=== PATIENT | female | born 1985 | race Caucasian/White ===

== ENCOUNTER 2020-11-12 09:54 | Outpatient (CLI) | payer OTHER, SELFPAY ==
[2020-11-12 10:08] LABS: Appearance Urine UA CLEAR; Bilirubin Urine UA NEGATIVE (NEGATIVE); Color Urine UA YELLOW; Glucose Urine UA NEGATIVE (Negative); Ketones Urine UA NEGATIVE (NEGATIVE); Leukocyte Esterase Urine UA 3+ (NEGATIVE); Nitrite Urine UA NEGATIVE (Negative); Occult Blood Urine UA NEGATIVE (Negative); Protein Urine UA NEGATIVE (Negative); Specific Gravity Urine UA <=1.005 (1.000-1.035); Urobilinogen Urine UA 0.2 E.U./dL (0.2)
[2020-11-12 10:09] LABS: pH Urine UA 6.5 (4.5-8.0)
[2020-11-12 10:10] LABS: RBC Urine None Seen (0-5/HPF)
[2020-11-12 10:15] LABS: Bacteria Urine Moderate (10-30); Culture Indicated Urine Cult Not Indicated; Squamous Epithelial Cell Urine 5-10 /HPF (0-5/HPF); WBC Urine 5-10/HPF (0-5/HPF)
--- NOTE | 2020-11-12 10:35 | PM.OBTRLD ---
Visit Information Visit Information Date of evaluation: 11/12/20 Primary OB Provider: Millicent Ewing On-call OB Provider: penny Reason for Evaluation: Yes pre-term labor Comments/Additional reasons for admission: Patient came in saying she felt lower abdominal cramping and low back pain. The cramping has come and gone. Currently feels better. Vital Signs Vital Signs: Blood pressure 118/75, pulse 75 PFSH Medical History (Updated 11/12/20 @ 10:37 by Helena Serrano MD) Neuralgic migraines (~2004) Painful menstrual periods (~2001) depression (~2015) Rh negative status during (~09/2020) Shingles Subclinical hypothyroidism (~04/12/13) Family History (Updated 10/09/20 @ 16:15 by Emilia Katz RN) Mother Hypertension Father History of kidney cancer History of nephrectomy Grandmother Diabetes mellitus Grandfather No problems noted. Grandmother Family history not known due to adoption Grandfather Family history not known due to adoption Social History marital status: number of children: 2 household members: spouse and children lives independently: Yes caregiver/support person: No housing: house pets and animals: No education level: master's degree ([employer]) occupational status: unemployed (SAHM.) current occupational exposures/hazards: No special sherron needs: No seatbelt use: always Smoking Status: Never smoker second hand exposure: No alcohol intake: former (Very rarely, once a year . ) substance use type: does not use during the past year weight has: remained stable well-balanced diet: daily or most days daily servings fruits/ve-4 caffeine: Yes (1 cup once or twice a week. ) Type(s) of exercise: bicycling (Spin bike ) frequency: 3-4 times per week Objective Labs Labs: Laboratory Results - last 24 hr 11/12/20 09:55 Urine Color Yellow Urine Appearance Clear Urine pH 6.5 Ur Specific [place] <=1.005 Urine Protein Negative Urine Glucose (UA) Negative Urine Ketones Negative Urine Occult Blood Negative Urine Nitrate Negative Urine Bilirubin Negative Urine Urobilinogen 0.2 Ur Leukocyte Esterase 3+ H Urine RBC None seen Urine WBC 5-10/hpf H Ur Squamous Epith Cells 5-10 /hpf H Urine Bacteria Moderate (10-30) H Ur Culture Indicated? Cult not indicated Evaluation Evaluation Baseline heart rate: 145 Contraction Frequency (minutes): 0 Category of Tracing: Appropriate for gestational age Laboratory results: Laboratory Tests 11/12/20 09:55 Urine Color Yellow Urine Appearance Clear Urine pH 6.5 Ur Specific [place] <=1.005 Urine Protein Negative Urine Glucose (UA) Negative Urine Ketones Negative Urine Occult Blood Negative Urine Nitrate Negative Urine Bilirubin Negative Urine Urobilinogen 0.2 Ur Leukocyte Esterase 3+ H Urine RBC None seen Urine WBC 5-10/hpf H Ur Squamous Epith Cells 5-10 /hpf H Urine Bacteria Moderate (10-30) H Ur Culture Indicated? Cult not indicated Diagnosis, Plan/Disposition Final Diagnosis (1) UTI (urinary tract infection) in in second trimester: Status: Acute Plan/Disposition Plan: Patient probably has a UTI will treat OB Disposition: home
== END 2020-11-12 10:45 | disposition home or self-care (01) ==
LOC: LABOR 10:10 → OB 11-13 07:52
PROVIDERS: PCP Physician Assistant; Referring Provider Obstetrics & Gynecology; Visit Provider Obstetrics & Gynecology
DX: O23.42 Unspecified infection of urinary tract in pregnancy, second trimester (principal); Z3A.24 24 weeks gestation of pregnancy
CPT/HCPCS: 59025; 59050; 81003; 81015; 87086; G0378; G0379

== ENCOUNTER → 2020-12-04 08:17 | Outpatient (CLI) | payer OTHER, SELFPAY ==
[2020-12-04 10:18] LABS: Hemoglobin 12.9 g/dL (12.0-16.0)
[2020-12-04 10:33] LABS: GTT (PREG) 1 Hour PP 50gm Dose 103 mg/dL (76-139)
== END ==
PROVIDERS: PCP Physician Assistant; Referring Provider Obstetrics & Gynecology; Visit Provider Obstetrics & Gynecology
DX: Z34.82 Encounter for supervision of other normal pregnancy, second trimester (principal)
CPT/HCPCS: 36415; 82950; 85014; 85018

== ENCOUNTER → 2021-01-29 08:17 | Outpatient (CLI) | payer OTHER, SELFPAY ==
[2021-01-29 09:52] LABS: Free T4, Direct Thyroxine 0.89 ng/dL (0.78-2.19)
[2021-01-29 10:06] LABS: Thyroid Stimulating Hormone 1.88 uIU/mL (0.47-4.68)
== END ==
PROVIDERS: PCP Physician Assistant; Referring Provider Obstetrics & Gynecology; Visit Provider Obstetrics & Gynecology
DX: E03.9 Hypothyroidism, unspecified (principal)
CPT/HCPCS: 36415; 84439; 84443

== ENCOUNTER → 2021-01-30 13:48 | Outpatient (CLI) | payer OTHER, SELFPAY ==
[2021-01-31 21:18] LABS: Strep Grp B PCR NEG for Grp B Strep
== END ==
PROVIDERS: PCP Physician Assistant; Visit Provider Obstetrics & Gynecology
DX: Z34.03 Encounter for supervision of normal first pregnancy, third trimester (principal); Z3A.36 36 weeks gestation of pregnancy
CPT/HCPCS: 87653

== ENCOUNTER 2021-02-25 08:33 | Inpatient (IN) | payer OTHER, SELFPAY ==
[2021-02-25 12:25] LABS: COVID19 - ADMIT (NP swab/PCR) Negative (Negative)
[2021-02-25 13:16] LABS: Add Manual Diff / Slide Review NO; Basophils Absolute Auto 0 /uL (0-100); Basophils Percent Auto 0.3 % (0-2); Eosinophils Absolute Auto 100 /uL (0-450); Eosinophils Percent Auto 0.5 % (2-4); Hematocrit 36.3 % (36-46); Hemoglobin 11.8 g/dL (12.0-16.0); Lymphocytes Absolute Auto 2100 /uL (1100-4500); Lymphocytes Percent Auto 20.4 % (25-40); Mean Corpuscular HGB Conc 32.6 % (30-36); Mean Corpuscular Hemoglobin 27.5 PG (26-34); Mean Corpuscular Volume 84.4 fL (80-100); Monocytes Absolute Auto 800 /uL (0-900); Monocytes Percent Auto 8.1 % (3-14); Neutrophils Absolute Auto 7200 /uL (1500-7000); Neutrophils Percent Auto 70.7 % (50-75); Platelet Count 349 X10^3/uL (150-400); Red Cell Distribution Width 14.6 % (11.6-14.8); White Blood Cell Count 10.2 X10^3/uL (4.5-11.0)
--- NOTE | 2021-02-25 14:15 | P.HPOB_ITS ---
OB HPI Date/Time Date of admission: 02/25/21 Date Patient Seen: 02/25/21 Time Patient Seen: 14:16 History of Present Condition Chief complaint: Labor & Delivery : 4 Para: 2 Estimated Date of Delivery: 02/26/21 Estimated Gestational Age (weeks): 39 Narrative: Savannah Johnson is a 35 year old female arrived on Labor and delivery in active labor History of Present care: good care, initiated at week # (9), number of visits (11) and pounds weight gain (35) Dating criteria: LMP confirmed by 1st trimester US Ultrasounds: normal mid trimester US Obstetrical complications: none Medical complications: none Preadmission Labs Blood type: A (-) negative -: Antibody screen: negative, GBS status: negative, HBsAG: negative, HIV: negative and RPR/VDLR: negative -: Chlamydia screen: not detected and Gonorrhea screen: not detected -: Rubella: immune HCAB: negative Cell-free DNA: Normal female 1 hr GTT: 103 Prior (ies) History: 04/29/2016 41 week gestation vaginal delivery female infant weighing 8 lb 3 oz 01/28/2019 40 week gestation vaginal delivery at home, not intentional, female infant weighing 7 lb 11 oz Evaluation Evaluation Baseline heart rate: 120 Variability: Moderate (11-25) monitor accelerations: Present Monitor Decelerations: Absent Contraction Frequency (minutes): 4 Uterine Contraction Intensity: Strong/Firm Category of Tracing: Reactive Status: Category l Cervical dilation (cm): 4 Cervical effacement (%): 90 station: -2 Laboratory results: Laboratory Tests 02/25/21 02/25/21 02/25/21 10:35 11:32 12:00 WBC 10.2 RBC 4.30 Hgb 11.8 L Hct 36.3 MCV 84.4 MCH 27.5 MCHC 32.6 RDW 14.6 Plt Count 349 Neut % (Auto) 70.7 Lymph % (Auto) 20.4 L [place] % (Auto) 8.1 Eos % (Auto) 0.5 L Baso % (Auto) 0.3 Neut # (Auto) 7200 H Lymph # (Auto) 2100 [place] # (Auto) 800 Eos # (Auto) 100 Baso # (Auto) 0 SARS-CoV-2 (PCR) Negative Blood Type A Negative Antibody Screen Negative PFSH Medical History (Updated 02/25/21 @ 15:05 by Helena Serrano MD) Neuralgic migraines (~2004) Painful menstrual periods (~2001) depression (~2015) Rh negative status during (~09/2020) Shingles Subclinical hypothyroidism (~04/12/13) Family History (Updated 10/09/20 @ 16:15 by Emilia Katz RN) Mother Hypertension Father History of kidney cancer History of nephrectomy Grandmother Diabetes mellitus Grandfather No problems noted. Grandmother Family history not known due to adoption Grandfather Family history not known due to adoption Social History marital status: number of children: 2 household members: spouse and children lives independently: Yes caregiver/support person: No housing: house pets and animals: No education level: master's degree ([employer]) occupational status: unemployed (SAHM.) current occupational exposures/hazards: No special sherron needs: No seatbelt use: always Smoking Status: Never smoker second hand exposure: No alcohol intake: former (Very rarely, once a year . ) substance use type: does not use during the past year weight has: remained stable well-balanced diet: daily or most days daily servings fruits/ve-4 caffeine: Yes (1 cup once or twice a week. ) Type(s) of exercise: bicycling (Spin bike ) frequency: 3-4 times per week Meds Home Medications and Allergies Allergies Allergy/AdvReac Type Severity Reaction Status Date / Time amoxicillin AdvReac Mild Hives as a Verified 10/09/20 15:36 Penicillins AdvReac Mild Hives as a Verified 10/09/20 15:36 Review of Systems Review of Systems Narrative: Patient denies any leakage of fluid. Good movement. No headaches, scotomata, epigastric pain. Patient with increasing contractions. History of home due to fast labor. Exam Vital Signs (past 8 hours): Blood pressure 133/83, pulse 70, temperature 36.6? Narrative Exam Narrative: HEENT exam within normal limits. Lungs are clear to auscultation percussion. Heart is regular rate and rhythm no S3-S4 murmurs. Abdomen is gravid. Fetus is vertex. Extremities without edema and nontender. Objective Labs Result Diagrams: 02/25/21 12:00 Labs: Laboratory Results - last 24 hr 02/25/21 02/25/21 02/25/21 10:35 11:32 12:00 WBC 10.2 RBC 4.30 Hgb 11.8 L Hct 36.3 MCV 84.4 MCH 27.5 MCHC 32.6 RDW 14.6 Plt Count 349 Neut % (Auto) 70.7 Lymph % (Auto) 20.4 L [place] % (Auto) 8.1 Eos % (Auto) 0.5 L Baso % (Auto) 0.3 Neut # (Auto) 7200 H Lymph # (Auto) 2100 [place] # (Auto) 800 Eos # (Auto) 100 Baso # (Auto) 0 SARS-CoV-2 (PCR) Negative Blood Type A Negative Antibody Screen Negative Assessment and Plan Assessment and Plan Assessment and Plan narrative: 39 week gestation in active labor. Anticipate vaginal delivery.
--- NOTE | 2021-02-25 18:15 | P.PCNOB_ITS ---
Labor & Delivery Delivery date: 02/25/21 Intrapartal Events: None Delivery monitor: external FHT and external uterine Route of delivery: L&D Laceration Description: Perineal - 1st Degree Delivery repair: chromic (3 0) Estimated blood loss (mL): 100 Anesthesia Type: Local (For repair 1% lidocaine approximately 10 cc) Narrative: Patient arrived on Labor and delivery in early labor. She ambulated and had change of her cervix. She progressed normally and had spontaneous rupture membranes for clear fluid. Patient's 1st stage of labor was 3 hours and 52 minutes. 2nd stage labor 13 minutes. She delivered spontaneously, over an intact perineum and the viable female infant was placed on the maternal abdomen. After the cord stopped pulsating the cord was clamped, cut, and cord bloods obtained. 3rd stage of labor was 15 minutes. Placenta delivered spontaneously, intact, with 3 vessels. The patient had no cervical or vaginal tears. A first- degree perineal tear was repaired with 3 0 chromic suture. Estimated blood loss 100 cc. Both mother doing well. Baby 1: Infant gender: Female Presentation: vertex Position: Right Occiput Anterior Placenta delivery description: Spontaneous Cord Vessel Description: 3 Vessels score (1 min): 9 score (5 min): 9 weight: 8 lb 9 oz Plan for aftercare: Routine care
[2021-02-26 07:00] LABS: Add Manual Diff / Slide Review NO; Basophils Absolute Auto 0 /uL (0-100); Basophils Percent Auto 0.5 % (0-2); Eosinophils Absolute Auto 100 /uL (0-450); Eosinophils Percent Auto 0.6 % (2-4); Hematocrit 34.3 % (36-46); Hemoglobin 11.4 g/dL (12.0-16.0); Lymphocytes Absolute Auto 1700 /uL (1100-4500); Lymphocytes Percent Auto 16.3 % (25-40); Mean Corpuscular HGB Conc 33.2 % (30-36); Mean Corpuscular Hemoglobin 27.5 PG (26-34); Mean Corpuscular Volume 82.9 fL (80-100); Monocytes Absolute Auto 900 /uL (0-900); Monocytes Percent Auto 8.2 % (3-14); Neutrophils Absolute Auto 7900 /uL (1500-7000); Neutrophils Percent Auto 74.4 % (50-75); Platelet Count 316 X10^3/uL (150-400); Red Blood Cell Count 4.14 X10^6/uL (4.0-5.2); Red Cell Distribution Width 14.5 % (11.6-14.8); White Blood Cell Count 10.7 X10^3/uL (4.5-11.0)
--- NOTE | 2021-02-26 08:45 | PM.OBDS.1 ---
Discharge Providers Provider Date of admission: 02/25/21 08:33 Discharge Date: 02/26/21 Primary care physician: Rashad Beckett PA-C Consults: 02/26/21 15:05 Consult to Maintenance Superintendent Routine Comment: Discharge provider: Millicent Ewing MD Summary Hospital Course Date Patient Seen: 02/26/21 Time Patient Seen: 08:00 Diagnoses: Status post vaginal delivery Hospital Course: This patient was admitted in early labor and progressed rapidly to fully dilated. She underwent an uncomplicated vaginal delivery. Met goals appropriately, and was discharged on day 1. She had transiently mildly increased blood pressures that resolved without any other symptoms. Precautions were discussed. Peripartum Data Delivery Method: Natural Vaginal Laceration Description: Perineal - 1st Degree complications: none 1: Gender: Female Disposition of : home Status at Discharge Cognitive/behavioral status at discharge: oriented Functional status at discharge: independent ambulation Overall status at discharge: patient is progressing back to baseline Time Spent with Patient Time attestation: Total time spent providing and/or coordinating discharge services: Objective Labs Result Diagrams: 02/26/21 06:42 Labs: Laboratory Results - last 24 hr 02/25/21 02/25/21 02/25/21 10:35 11:32 12:00 WBC 10.2 RBC 4.30 Hgb 11.8 L Hct 36.3 MCV 84.4 MCH 27.5 MCHC 32.6 RDW 14.6 Plt Count 349 Neut % (Auto) 70.7 Lymph % (Auto) 20.4 L [place] % (Auto) 8.1 Eos % (Auto) 0.5 L Baso % (Auto) 0.3 Neut # (Auto) 7200 H Lymph # (Auto) 2100 [place] # (Auto) 800 Eos # (Auto) 100 Baso # (Auto) 0 SARS-CoV-2 (PCR) Negative Blood Type A Negative Antibody Screen Negative 02/26/21 06:42 WBC 10.7 RBC 4.14 Hgb 11.4 L Hct 34.3 L MCV 82.9 MCH 27.5 MCHC 33.2 RDW 14.5 Plt Count 316 Neut % (Auto) 74.4 Lymph % (Auto) 16.3 L [place] % (Auto) 8.2 Eos % (Auto) 0.6 L Baso % (Auto) 0.5 Neut # (Auto) 7900 H Lymph # (Auto) 1700 [place] # (Auto) 900 Eos # (Auto) 100 Baso # (Auto) 0 SARS-CoV-2 (PCR) Blood Type Antibody Screen Exam Vital Signs (past 8 hours): 121/76, HR 80 Const General: cooperative, healthy appearing, comfortable and well groomed Resp Effort & Inspection: normal respiratory effort Auscultation: clear to auscultation bilaterally Cardio Rate: regular rate Rhythm: regular rhythm GI Palpation: soft and No tender Other: fundus well below u Extrem General: normal to inspection Discharge Plan Discharge Plan Patient Disposition: Home Discharge orders & Medications Prescriptions: New sertraline 25 mg tablet 25 mg PO DAILY Qty: 30 RF: 3 Follow up/Referrals: Rashad Beckett PA-C [Primary Care Provider] - (Appointment on Thrus, March at 10 AM with for check. Appoint onThrusfebruary at 8 AM) Millicent Ewing MD [Physician] - 2 Weeks (depression follow up ) Diet/Activity/Treatments Diet: Regular Activity: Nothing in the vagina for 6 weeks. Avoid lifting more than 10 lbs for 6 weeks. If you have increasing bleeding, fevers, chills, nausea, vomiting, headaches, or any other symptoms or concerns, call or come to the emergency room. Skin/Wound/Dressing Care Report to your healthcare provider any signs of infection, such as:: chills, fever, night sweats, increased pain, unusual drainage and unusual redness Visit Report/Discharge Packet Instructions: DI for Labor and Delivery, Vaginal Discharge Data Primary Care Provider: Rashad Beckett
[2021-02-26] MEDS: DOCUSATE 100 MG CAPSULE PO (08:58)
[2021-02-26] MEDS: SERTRALINE 50 MG TABLET 25 MG PO (08:58)
== END 2021-02-26 17:26 | disposition home or self-care (01) | DRG 807 ==
PROVIDERS: Specialist; Admitting Provider Obstetrics & Gynecology; PCP Physician Assistant; Referring Provider Obstetrics & Gynecology; Visit Provider Obstetrics & Gynecology
DX: O70.0 First degree perineal laceration during delivery (principal); Z37.0 Single live birth; Z3A.39 39 weeks gestation of pregnancy
CPT/HCPCS: 36415; 59050; 59410; 85025; 86850; 86900; 86901; 87635; C9803; G0379

== ENCOUNTER → 2021-05-02 11:45 | Outpatient (CLI) | payer OTHER, SELFPAY ==
[2021-05-02 12:17] LABS: COVID19 -Nasal RAPID Negative (Negative)
== END ==
PROVIDERS: PCP Family Medicine; Referring Provider Nurse Practitioner Family; Visit Provider Nurse Practitioner Family
DX: R05 Cough (principal); R09.81 Nasal congestion; Z20.822 Contact with and (suspected) exposure to COVID-19
CPT/HCPCS: 87635

== ENCOUNTER → 2023-03-05 09:33 | Outpatient (CLI) | payer OTHER, SELFPAY ==
[2023-03-05 10:29] LABS: Influenza A - CEPHEID Flu A NEGATIVE (NEGATIVE); Influenza B - CEPHEID Flu B NEGATIVE (NEGATIVE); Respiratory Syncytial Virus Negative (Negative)
[2023-03-05 10:30] LABS: COVID-19 CEPHEID 4-PLEX PCR Negative (Negative)
== END ==
PROVIDERS: PCP Family Medicine; Visit Provider Physician Assistant
DX: J06.9 Acute upper respiratory infection, unspecified (principal); J02.9 Acute pharyngitis, unspecified
CPT/HCPCS: 0241U

== ENCOUNTER → 2023-03-24 08:07 | Outpatient (CLI) | payer OTHER, SELFPAY ==
--- NOTE | 2023-03-24 | DI.US.S_ITS ---
PROCEDURE: US OB <= 14 WEEKS FETUS INDICATIONS: VIABILITY, SIZE AND DATES OUTSIDE/PRIOR DATING DATA: Last menstrual period (LMP): 01/31/2023. LMP-based estimated date of delivery (AARON): 11/07/2023. First dating scan (date and location): Today's exam. Estimated date of delivery (AARON) from first dating scan: 11/10/2023. TECHNIQUE: Real-time scanning was performed of the fetus and maternal pelvic organs, with image documentation. Endovaginal scanning was also performed to better visualize the fetus and maternal ovaries. COMPARISON: None. FINDINGS: Embryo: Single living intrauterine . [place]-rump length measures 0.8 cm, corresponding to 6 weeks 6 days. Heart rate: 128 beats per minute. Maternal organs: Ovaries unremarkable. IMPRESSION: Single living intrauterine at 6 weeks 6 days, AARON of 11/10/2023. We strive to produce accurate, complete, and clear reports of imaging services. To assist us in improving patient care, this report was composed using standard report templates and voice recognition software. Therefore, it may contain abnormal punctuation, insertions and/or omissions. Occasional wrong-word or sound-alike substitutions may occur. Though we review the report and make efforts to correct it, we do recommend that the report be read carefully in proper context to recognize any text inaccuracies. Dictated by: Sean Constantino M.D. on 03/24/2023 at 11:24 Approved by: Sean Constantino M.D. on 03/24/2023 at 11:25
== END ==
PROVIDERS: PCP Family Medicine; Referring Provider Advanced Practice Midwife; Visit Provider Advanced Practice Midwife
DX: Z36.87 Encounter for antenatal screening for uncertain dates (principal); Z3A.01 Less than 8 weeks gestation of pregnancy
CPT/HCPCS: 76801

== ENCOUNTER → 2023-06-21 07:51 | Outpatient (CLI) | payer OTHER, SELFPAY ==
--- NOTE | 2023-06-21 07:54 | DI.US.S_ITS ---
PROCEDURE: US OB >= 14 WEEKS FETUS INDICATIONS: ANATOMY OUTSIDE/PRIOR DATING DATA: Last menstrual period (LMP): 01/31/2023. LMP-based estimated date of delivery (AARON): 11/07/2023. First dating scan (date and location): 03/24/2023. Estimated date of delivery (AARON) from first dating scan: 11/10/2023. The calculations are made using the working AARON of 11/07/2023. TECHNIQUE: Real-time scanning was performed of the fetus, with image documentation and biometric measurements. Endovaginal scanning: None COMPARISON: None. FINDINGS: General: A single living intrauterine gestation is present. Presentation: Vertex. Placenta: Placental position is posterior , without previa. Amniotic fluid index: 10.3 cm, normal range is 5-24 cm. Single deepest vertical pocket is 3.5 cm. heart rate: 145 beats per minute. Maternal cervical canal: 4.5 cm long. Normal lower limit is 2.5 cm. biometrics: Biparietal diameter: 4.6 cm, 19 week 6 day Head circumference: 17.3 cm, 19 week 6 day Abdominal circumference: 16.1 cm, 21 week 1 day Femur length: 3.2 cm, 19 week 6 day Clinically estimated gestational age: 20 week 1 day Composite gestational age from present scan: 20 week 1 day Estimated weight and percentile: 355 g, 64 percentile Anatomic survey: Neuro: Ventricles are non-dilated at less than 10 mm. Cisterna magna is normal at 3-11 mm. Cerebellum is normal in size and morphology. Nuchal skin fold: Normal at less than 6 mm between 14-21 weeks gestational age. Face: Nose and lips, facial profile are normal. Spine: No evidence for spina bifida. Heart: 4-chambered heart is present, with normal ventricular outflow tracts. Diaphragm: Diaphragm is intact. Stomach: Left-sided stomach is present. Kidneys: No hydronephrosis. Normal is less than 5 mm in 2nd trimester, less than 7 mm in 3rd trimester. Cord: 3-vessel cord has orthotopic insertion. Bladder: Normal in size. Extremities: All 4 extremities identified. IMPRESSION: Single live intrauterine consistent with 20 week 1 day gestation. Normal anatomic survey Approved by: Benny Hilario M.D. on 06/21/2023 at 18:56
== END ==
PROVIDERS: PCP Family Medicine; Referring Provider Nurse Practitioner Obstetrics & Gynecology; Visit Provider Nurse Practitioner Obstetrics & Gynecology
DX: O09.522 Supervision of elderly multigravida, second trimester (principal); Z3A.20 20 weeks gestation of pregnancy
CPT/HCPCS: 76811

== ENCOUNTER 2023-08-30 17:04 | Outpatient (CLI) | payer OTHER, SELFPAY ==
--- NOTE | 2023-08-30 17:35 | PM.PROC.1 ---
Procedures Date/Time Date of procedure: 08/30/23 Time of procedure: 17:15 General Procedure description: Savannah called CNM with complaints of decreased movement. Met here on L&D for evaluation of status. Savannah very relieved to know baby is doing well. NST: Patient here for NST due to decreased movement at 30 weeks. Baseline: 130 bpm Variability: moderate Accelerations: present Decelerations: none Impression: Reactive NST Plan: follow up with provider as scheduled
--- NOTE | 2023-09-01 19:11 | PM.OBTRLD ---
Visit Information Visit Information Date of evaluation: 08/30/23 Primary OB Provider: Millicent Cook On-call OB Provider: Millicent Cook Reason for Evaluation: Yes non-stress test non-stress test reason: decreased movement Comments/Additional reasons for admission: Savannah called, concerned about baby's movement today so came in for evaluation. Also concerned because she's had significant diarrhea for 2 weeks. No-one else in the home is ill. Otherwise, she is feeling fine. Has not changes anything that she can think of to make her sick. Trying to stay hydrated. Vital Signs Vital Signs: BP: 116/76 HR: 83 bpm Temp: 36.8 C temporal SpO2: 100% PFSH Medical History Painful menstrual periods (~2001) Subclinical hypothyroidism (~04/12/13) Shingles Rh negative status during (~09/2020) depression (~2015) Neuralgic migraines (~2004) Family History Mother Hypertension Father History of kidney cancer History of nephrectomy Grandmother Diabetes mellitus Grandfather No problems noted. Grandmother Family history not known due to adoption Grandfather Family history not known due to adoption Social History marital status: number of children: 2 household members: spouse and children lives independently: Yes caregiver/support person: No housing: house pets and animals: No education level: master's degree ([employer]) occupational status: unemployed ([employer] current occupational exposures/hazards: No special sherron needs: No seatbelt use: always Smoking Status: Never smoker second hand exposure: No alcohol intake: former (Very rarely, once a year . ) substance use type: does not use during the past year weight has: remained stable well-balanced diet: daily or most days daily servings fruits/ve-4 caffeine: Yes (1 cup once or twice a week. ) Type(s) of exercise: bicycling (Spin bike ) frequency: 3-4 times per week Review of Systems Review of Systems Narrative: All negative except as mentioned above. Evaluation Evaluation Comments: See procedure note from same date. Diagnosis, Plan/Disposition Final Diagnosis (1) Non-stress test reactive: Status: Acute (2) Supervision of normal in third trimester: Status: Acute (3) Diarrhea: Status: Acute Plan/Disposition Plan: Reviewed ways to manage diarrhea in . Recommend increasing hydration. Discussed movement variation in early third trimester. Discharge home.
== END 2023-08-30 17:56 | disposition home or self-care (01) ==
LOC: LABOR 17:12 → OB 09-01 10:00
PROVIDERS: PCP Family Medicine; Referring Provider Advanced Practice Midwife; Visit Provider Advanced Practice Midwife
DX: O36.8130 Decreased fetal movements, third trimester, not applicable or unspecified (principal); Z3A.30 30 weeks gestation of pregnancy
CPT/HCPCS: 59025; G0378; G0379

== ENCOUNTER 2023-09-02 17:05 | Outpatient (CLI) | payer OTHER, SELFPAY ==
--- NOTE | 2023-09-02 17:20 | DI.US.S_ITS ---
PROCEDURE: US OB LIMITED INDICATIONS: VAGINAL BLEEDING - CRAMPING OUTSIDE/PRIOR DATING DATA: Last menstrual period (LMP): 02/20/2023. LMP-based estimated date of delivery (AARON): 11/07/2023. First dating scan (date and location): 03/24/2023. Estimated date of delivery (AARON) from first dating scan: 11/10/2023. The calculations are made using the clinical AARON of 11/06/2022. TECHNIQUE: Real-time scanning was performed of the fetus, with image documentation and biometric measurements. COMPARISON: [facility], , US OB >= 14 WEEKS FETUS, 06/21/2023, 7:57. , US OB <= 14 WEEKS FETUS, 03/24/2023, 8:41. FINDINGS: General: A single living intrauterine gestation is present. Presentation: Vertex. Placenta: Placental position is posterior , without previa. Amniotic fluid index: 14.2 cm, normal range is 5-24 cm. Single deepest vertical pocket is 4.4 cm. heart rate: 139 beats per minute. Maternal cervical canal: 3.4 cm long. Normal lower limit is 2.5 cm. biometrics: Clinically estimated gestational age: 30 weeks 4 days IMPRESSION: Single live intrauterine with gestational age 30 weeks 4 days. No gross abnormality. We strive to produce accurate, complete, and clear reports of imaging services. To assist us in improving patient care, this report was composed using standard report templates and voice recognition software. Therefore, it may contain abnormal punctuation, insertions and/or omissions. Occasional wrong-word or sound-alike substitutions may occur. Though we review the report and make efforts to correct it, we do recommend that the report be read carefully in proper context to recognize any text inaccuracies. Dictated by: Liza Grayson M.D. on 09/02/2023 at 18:00 Approved by: Liza Grayson M.D. on 09/02/2023 at 18:02
[2023-09-02 17:29] LABS: Appearance Urine UA CLEAR; Bilirubin Urine UA NEGATIVE (NEGATIVE); Color Urine UA YELLOW; Glucose Urine UA NEGATIVE (Negative); Ketones Urine UA NEGATIVE (NEGATIVE); Leukocyte Esterase Urine UA NEGATIVE (NEGATIVE); Nitrite Urine UA NEGATIVE (Negative); Occult Blood Urine UA NEGATIVE (Negative); Protein Urine UA NEGATIVE (Negative); Specific Gravity Urine UA 1.025 (1.000-1.035); Urobilinogen Urine UA 0.2 E.U./dL (0.2)
[2023-09-02 17:43] LABS: Bacteria Urine None Seen; Culture Indicated Urine Cult Not Indicated; RBC Urine None Seen (0-5/HPF); Squamous Epithelial Cell Urine 0-1 /HPF (0-5/HPF); WBC Urine None Seen (0-5/HPF)
--- NOTE | 2023-09-02 18:04 | PM.OBTRLD ---
Visit Information Visit Information Date of evaluation: 09/02/23 Primary OB Provider: Lexus Miranda On-call OB Provider: Lexus Miranda Reason for Evaluation: Yes pre-term labor Comments/Additional reasons for admission: 37YO @ 30wks 4days here for evaluation of vaginal bleeding, menstrual like cramping and decreased movement. Has been having lots of BH contractions for a while now. Had sex this morning and then noticed her cramping getting more uncomfortable, still rated at a 1-3/10 pain. Noticed spotting when wiping this afternoon. Blood was bright red and she noticed it twice. No continued vaginal bleeding. movement has been decreased fro several days now and she was evaluated for this with a reassuring FHR 2 days ago. Vital Signs Vital Signs: BP 115/71, HR 83bpm, T 37.1C Temporal PFSH Medical History Painful menstrual periods (~2001) Subclinical hypothyroidism (~04/12/13) Shingles Rh negative status during (~09/2020) depression (~2015) Neuralgic migraines (~2004) Family History Mother Hypertension Father History of kidney cancer History of nephrectomy Grandmother Diabetes mellitus Grandfather No problems noted. Grandmother Family history not known due to adoption Grandfather Family history not known due to adoption Social History marital status: number of children: 2 household members: spouse and children lives independently: Yes caregiver/support person: No housing: house pets and animals: No education level: master's degree ([employer]) occupational status: unemployed (SAHM.) current occupational exposures/hazards: No special sherron needs: No seatbelt use: always Smoking Status: Never smoker second hand exposure: No alcohol intake: former (Very rarely, once a year . ) substance use type: does not use during the past year weight has: remained stable well-balanced diet: daily or most days daily servings fruits/ve-4 caffeine: Yes (1 cup once or twice a week. ) Type(s) of exercise: bicycling (Spin bike ) frequency: 3-4 times per week Review of Systems Review of Systems ROS: Yes All systems reviewed with the patient and are negative except as otherwise documented Exam External Female Exam: normal external appearance Speculum Exam - Vagina: normal appearance of the vagina, normal vaginal discharge and other (No vaginal bleeding noted) Speculum Exam - Cervix: normal appearance of the cervix and cervical os open (appears 1cm) OB/External & Speculum: cervical os open (appears 1cm) Manual OB Exam: dilated 1 Presentation: vertex Objective Imaging OB US >14wks Limited: Radiologist's impression: PROCEDURE: US OB LIMITED INDICATIONS: VAGINAL BLEEDING - CRAMPING OUTSIDE/PRIOR DATING DATA: Last menstrual period (LMP): 02/20/2023. LMP-based estimated date of delivery (AARON): 11/07/2023. First dating scan (date and location): 03/24/2023. Estimated date of delivery (AARON) from first dating scan: 11/10/2023. The calculations are made using the clinical AARON of 11/06/2022. TECHNIQUE: Real-time scanning was performed of the fetus, with image documentation and biometric measurements. COMPARISON: [facility], US, US OB >= 14 WEEKS FETUS, 06/21/2023, 7:57. US, US OB <= 14 WEEKS FETUS, 03/24/2023, 8:41. FINDINGS: General: A single living intrauterine gestation is present. Presentation: Vertex. Placenta: Placental position is posterior , without previa. Amniotic fluid index: 14.2 cm, normal range is 5-24 cm. Single deepest vertical pocket is 4.4 cm. heart rate: 139 beats per minute. Maternal cervical canal: 3.4 cm long. Normal lower limit is 2.5 cm. biometrics: Clinically estimated gestational age: 30 weeks 4 days IMPRESSION: Single live intrauterine with gestational age 30 weeks 4 days. No gross abnormality. We strive to produce accurate, complete, and clear reports of imaging services. To assist us in improving patient care, this report was composed using standard report templates and voice recognition software. Therefore, it may contain abnormal punctuation, insertions and/or omissions. Occasional wrong-word or sound-alike substitutions may occur. Though we review the report and make efforts to correct it, we do recommend that the report be read carefully in proper context to recognize any text inaccuracies. Dictated by: Liza Grayson M.D. on 09/02/2023 at 18:00 Approved by: Liza Grayson M.D. on 09/02/2023 at 18:02 Labs Labs: Laboratory Results - last 24 hr 09/02/23 17:22 Urine Color Yellow Urine Appearance Clear Urine pH 5.0 Ur Specific [place] 1.025 Urine Protein Negative Urine Glucose (UA) Negative Urine Ketones Negative Urine Occult Blood Negative Urine Nitrate Negative Urine Bilirubin Negative Urine Urobilinogen 0.2 Ur Leukocyte Esterase Negative Urine RBC None seen Urine WBC None seen Ur Squamous Epith Cells 0-1 /hpf Urine Bacteria None seen Ur Culture Indicated? Cult not indicated Wet Prep Tric BV Heavenly Final 09/02/23-1854 White blood cells Occasional WBC seen Clue cells: None seen Yeast: Few Trichomonas: None seen Evaluation Evaluation Baseline heart rate: 130 Variability: Moderate (11-25) monitor accelerations: Present Monitor Decelerations: Absent Contraction Frequency (minutes): 3 Uterine Contraction Intensity: Mild Category of Tracing: Reactive Cervical dilation (cm): 1 Cervical effacement (%): 40 station: -4 Diagnosis, Plan/Disposition Final Diagnosis (1) Vulvovaginal candidiasis: Status: Acute Problem details: OTC Monistat 7, per patient preference (2) False labor before 37 completed weeks of gestation during in third trimester, antepartum: Status: Acute Problem details: Cramping resolved with 3 doses of nifedipine. Patient declined repeat CE. Plan/Disposition Plan: Discharge to home with strict labor precautions. Rx nifedipine XR sent with instructions for daily use until 34wks. OB Disposition: home
[2023-09-02] MEDS: NIFEdipine 10 MG CAPSULE PO ×3 (18:21→19:01)
== END 2023-09-02 20:20 | disposition home or self-care (01) ==
LOC: LABOR 17:53 → OB 09-05 14:11
PROVIDERS: PCP Family Medicine; Referring Provider Nurse Practitioner Obstetrics & Gynecology; Visit Provider Nurse Practitioner Obstetrics & Gynecology
DX: O98.813 Other maternal infectious and parasitic diseases complicating pregnancy, third trimester (principal); B37.31 Acute candidiasis of vulva and vagina; O47.03 False labor before 37 completed weeks of gestation, third trimester; Z3A.30 30 weeks gestation of pregnancy
CPT/HCPCS: 59025; 59050; 76815; 81001; 87210; 87220; G0378; G0379

== ENCOUNTER 2023-09-04 14:53 | Outpatient (CLI) | payer OTHER, SELFPAY ==
--- NOTE | 2023-09-04 15:11 | DI.US.S_ITS ---
PROCEDURE: US OB LIMITED INDICATIONS: LABOR OUTSIDE/PRIOR DATING DATA: Last menstrual period (LMP): 01/31/2023. LMP-based estimated date of delivery (AARON): 11/07/2023. First dating scan (date and location): 03/24/2023. Estimated date of delivery (AARON) from first dating scan: 11/10/2023. The calculations are made using the menstrual AARON of 11/07/2023. TECHNIQUE: Real-time scanning was performed of the fetus, with image documentation. Endovaginal scanning: Was performed for additional visualization of the cervix COMPARISON: [facility], OB <= 14 WEEKS FETUS, 03/24/2023, 8:41. [facility], OB >= 14 WEEKS FETUS, 06/21/2023, 7:57. [facility], OB LIMITED, 09/02/2023, 17:35. FINDINGS: A single live intrauterine gestation is present. Presentation: Vertex. Placenta: Placental position is right posterior, without previa. Amniotic fluid index: 19.2 cm, normal range is 5-24 cm. Single deepest vertical pocket is 6.5 cm. heart rate: 149 beats per minute. Maternal cervical canal: 3.6 cm long. There is no funneling of the internal cervical os. Clinically estimated gestational age: 30.6 Prominent adnexal vessels can be seen, with a right sided vein measuring 1.8 cm and a left-sided vein measuring 0.9 cm. IMPRESSION: Normal cervical length, 3.6 cm. No funneling of the internal cervical os Normal IDALIA, 19.2. Dictated by: Amado Handley M.D. on 09/04/2023 at 15:54 Approved by: Amado Handley M.D. on 09/04/2023 at 15:57
--- NOTE | 2023-09-04 15:30 | PM.OBTRLD ---
Visit Information Visit Information Date of evaluation: 09/04/23 Primary OB Provider: Lexus Miranda On-call OB Provider: Lexus Miranda Reason for Evaluation: Yes pre-term labor Comments/Additional reasons for admission: 37YO @ 30wks 4days here for evaluation of contractions. Was seen in triage 2 days ago with contractions, CE of 1.5/40%/-4 and a cervical length of 3.4cm. Vulvovaginal candidiasis was was diagnosed, Monistat 7 was initiated (she has continued this treatment) and nifedipine protocol was ninitated. her contractions ceased after 3 doses of nifedipine and she was discharged to home with a Rx for nifedipine XR 30mg. She noticed stronger contractions since waking this morning, but took her nifedipine late today around 1200. Contractions continued every 2-4 minutes at the same strength until 1430, then eased prior to her arrival at 1500. FM perceived as normal today. No vaginal bleeding or leaking of fluid. Vital Signs Vital Signs: BP 110/65, HR 96bpm, T 37.4C Temporal PFSH Medical History Painful menstrual periods (~2001) Subclinical hypothyroidism (~04/12/13) Shingles Rh negative status during (~09/2020) depression (~2015) Neuralgic migraines (~2004) Family History Mother Hypertension Father History of kidney cancer History of nephrectomy Grandmother Diabetes mellitus Grandfather No problems noted. Grandmother Family history not known due to adoption Grandfather Family history not known due to adoption Social History marital status: number of children: 2 household members: spouse and children lives independently: Yes caregiver/support person: No housing: house pets and animals: No education level: master's degree ([employer]) occupational status: unemployed (SAHM.) current occupational exposures/hazards: No special sherron needs: No seatbelt use: always Smoking Status: Never smoker second hand exposure: No alcohol intake: former (Very rarely, once a year . ) substance use type: does not use during the past year weight has: remained stable well-balanced diet: daily or most days daily servings fruits/ve-4 caffeine: Yes (1 cup once or twice a week. ) Type(s) of exercise: bicycling (Spin bike ) frequency: 3-4 times per week Review of Systems Review of Systems ROS: Yes All systems reviewed with the patient and are negative except as otherwise documented Exam Vital Signs (past 8 hours): see above Presentation: vertex Objective Imaging OB US >14wks Limited: My impression: Per US Tech: 3.6cm with no funneling Evaluation Evaluation Baseline heart rate: 145 Variability: Moderate (11-25) monitor accelerations: Present Monitor Decelerations: Variable Contraction Frequency (minutes): 0 Cervical dilation (cm): 1 Cervical effacement (%): 40 station: -4 Comments: CE unchanged: CE of 1.5/40%/-4 Diagnosis, Plan/Disposition Final Diagnosis (1) False labor before 37 completed weeks of gestation during in third trimester, antepartum: Status: Acute Problem details: contractions with no cervical change Plan/Disposition Plan: Discharge to home with labor precautions. Counseled on use of nifedipine and recommend she take it first thing in the morning. OB Disposition: home
[2023-09-04 19:13] LABS: Appearance Urine UA CLEAR; Bilirubin Urine UA NEGATIVE (NEGATIVE); Color Urine UA YELLOW; Glucose Urine UA NEGATIVE (Negative); Ketones Urine UA NEGATIVE (NEGATIVE); Leukocyte Esterase Urine UA NEGATIVE (NEGATIVE); Nitrite Urine UA NEGATIVE (Negative); Occult Blood Urine UA TRACE-INTACT (Negative); Protein Urine UA NEGATIVE (Negative); Urobilinogen Urine UA 0.2 E.U./dL (0.2)
== END 2023-09-04 16:30 | disposition home or self-care (01) ==
LOC: OB 09-05 14:11
PROVIDERS: PCP Family Medicine; Referring Provider Nurse Practitioner Obstetrics & Gynecology; Visit Provider Nurse Practitioner Obstetrics & Gynecology
DX: O47.03 False labor before 37 completed weeks of gestation, third trimester (principal); Z3A.30 30 weeks gestation of pregnancy
CPT/HCPCS: 59025; 76815; 76817; 81003; G0378; G0379

== ENCOUNTER 2023-11-08 01:51 | Inpatient (IN) | payer OTHER, SELFPAY ==
--- NOTE | 2023-11-08 02:09 | PM.OBHP.1 ---
OB HPI Date/Time Date of admission: 11/08/23 Date Patient Seen: 11/08/23 Time Patient Seen: 02:09 History of Present Condition Chief complaint: Labor : 5 Para: 3 Estimated Date of Delivery: 11/07/23 Estimated Gestational Age (weeks): 40.1 Narrative: Savannah Johnson is a 38 year old female @ [id number] by LMP concordant with 7wkUS who presents for evaluation of labor. Seen in clinic this morning with her membranes swept. Camilo all afternoon and evening with steady progression of frequency and intensity. Has noticed some bloody show, no leaking of fluid. Uncomplicated care with CNMs: AMA, hypothryoid, mild anemia. Desires no intervention and declines IV access except for emergency situations. , William is present and supportive. History of Present care: good care, initiated at week # (7), number of visits (9) and pounds weight gain (24) Dating criteria: LMP confirmed by 1st trimester US Ultrasounds: normal mid trimester US Obstetrical complications: none Medical complications: none Preadmission Labs Blood type: A (-) negative -: Antibody screen: negative, GBS status: negative, HBsAG: negative, HIV: negative and RPR/VDLR: negative -: Chlamydia screen: not detected and Gonorrhea screen: not detected -: Rubella: immune and Varicella: immune HCT: 32.7 HCAB: negative Cell-free DNA: negative 1 hr GTT: 98 Prior (ies) History: SAB x1, NSVB x3 Evaluation Evaluation Baseline heart rate: 120 Variability: Moderate (11-25) monitor accelerations: Absent Monitor Decelerations: Variable Contraction Frequency (minutes): 3 Uterine Contraction Intensity: Strong/Firm Dilation (cm): 9 Effacement (%): 90 station: -1 [facility] Medical History Painful menstrual periods (~2001) Subclinical hypothyroidism (~04/12/13) Shingles Rh negative status during (~09/2020) depression (~2015) Neuralgic migraines (~2004) Family History Mother Hypertension Father History of kidney cancer History of nephrectomy Grandmother Diabetes mellitus Grandfather No problems noted. 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 ) substance use type: does not use during the past year weight has: remained stable well-balanced diet: daily or most days daily servings fruits/ve-4 caffeine: Yes (1 cup once or twice a week. ) Type(s) of exercise: bicycling (Spin bike ) frequency: 3-4 times per week Meds Home Medications and Allergies Home Medications Medication Instructions Recorded Confirmed Type albuterol sulfate 90 mcg/actuation 2 puff inhalation Q6H PRN 06/23/22 08/31/23 Rx aerosol inhaler shortness of breath or wheezing #6.7 grams inhalational spacing device #1 ea 06/23/22 08/31/23 Rx (Aerochamber MV spacer) albuterol sulfate 90 mcg/actuation 2 puff inhalation Q6H PRN 05/27/23 08/31/23 Rx aerosol inhaler shortness of breath or wheezing #8.5 grams cefpodoxime 200 mg tablet 200 mg PO BID penumonia #10 tabs 05/27/23 08/31/23 Rx Allergies Allergy/AdvReac Type Severity Reaction Status Date / Time amoxicillin AdvReac Mild Hives as a Verified 08/31/23 10:09 Penicillins AdvReac Mild Hives as a Verified 08/31/23 10:09 Review of Systems Review of Systems ROS: Yes All systems reviewed with the patient and are negative except as otherwise documented OB Exam Vital signs Blood Pressure: 136/69 Pulse Rate: 87 Respiratory Rate: 18 Temperature: 98.6 F Resp Effort & Inspection: normal respiratory effort Auscultation: clear to auscultation bilaterally Cardio Rate: regular rate Rhythm: regular rhythm Presentation: vertex Assessment and Plan Assessment and Plan Assessment and Plan narrative: A: Term multipara Active labor Anemia, mild GBS prophylaxis NOT indicated Cat II FHR, overall reassuring P: Admit, routine labor orders. Continuous labor support. Anticipate second stage soon.
[2023-11-08 02:49] VITALS: BP 136/69
[2023-11-08 03:21] VITALS: BP 136/69; PULSE 87; RESP 18; TEMP 37
--- NOTE | 2023-11-08 03:22 | PM.OBPRVD ---
Labor & Delivery Delivery date: 11/08/23 Intrapartal Events: None Cervical ripening method: none Induction method: none Delivery monitor: external FHT Route of delivery: Episiotomy description: None L&D Laceration Description: None Quantitative Blood Loss: 50 Anesthesia Type: None Narrative: Savannah labored well without anesthesia or augmentation. Began to feel rectal pressure with an urge to push and was presumed complete at that time. A short second stage led to NSVB of a vigorous baby girl in LOP position over an intact perineum. There was a single loose nuchal cord and the shoulders delivered easily. was placed on maternal abdomen for drying and skin to skin. 10 units of pitocin was given IM for AMTSL. After cessation of pulsation, the cord was double clamped by BRISEIDA and cut by Savannah. Cord blood sample was collected for testing. Gentle cord traction and a single maternal push led to spontaneous, Schultze delivery of an apparently intact placenta, membranes and 3VC with a marginal insertion. Fundus immediately firm and bleeding scant. QBL 50mL. Both mother and baby stable and skin to skin as I left the room. Baby 1: Infant gender: Female Presentation: vertex Position: Left Occiput Posterior Placenta delivery description: Spontaneous Cord Vessel Description: 3 Vessels, Nuchal Cord and Loose score (1 min): 9 score (5 min): 9 weight: 3.622 kg Plan for aftercare: Routine care
[2023-11-08] MEDS: IBUPROFEN 600 MG TABLET PO (03:45)
[2023-11-08] MEDS: ACETAMINOPHEN 325 MG TABLET 650 MG PO (03:45)
[2023-11-08] MEDS: OXYTOCIN 10 UNIT/ML VIAL IM (03:47)
--- NOTE | 2023-11-08 04:34 | P.DS_ITS ---
Discharge Providers Provider Date of admission: 11/08/23 01:51 Discharge Date: 11/08/23 Primary care physician: Jacinto Pereira MD Consults: 11/09/23 03:18 Consult to Soil Specialist Routine Comment: Discharge provider: Lexus Miranda CNM Summary Hospital Course Date Patient Seen: 11/08/23 Time Patient Seen: 04:35 Diagnoses: O80 Hospital Course: 2 hours s/p NSVB with no medications or complications. Voiding, ambulating and independently. Minimal pain well controlled with ibuprofen and Tylenol. Vaginal bleeding is light without clots. She is tolerating food and fluids. She and her are eager for discharge to home as soon as possible. Peripartum Data Infant Delivery Method: Natural Vaginal Laceration Description: None Episiotomy description: None Procedures: o80 complications: none 1: Gender: Female Disposition of : home (follow-up 11/09/23) Discharge Diagnosis (1) Encounter for full-term uncomplicated delivery: Status: Acute Status at Discharge Cognitive/behavioral status at discharge: oriented and calm Functional status at discharge: independent ambulation Overall status at discharge: patient is progressing back to baseline Time Spent with Patient Time attestation: Total time spent providing and/or coordinating discharge services: Objective Labs 11/08/23 04:46 Exam Vital Signs (past 8 hours): - 11/08/23 02:49 11/08/23 03:21 Temperature 98.6 F Pulse Rate 87 Respiratory Rate 18 Blood Pressure 136/69 136/69 Const General: healthy appearing Nutritional Appearance: average body habitus and well nourished Other: Fundus firm @ U, lochia small- no clots. Perineum intact. Psych Appearance: grossly normal Mental Status: mental status grossly normal Speech and Movement: speech and movement normal Mood: congruent mood Affect: normal affect Discharge Plan Discharge Plan Patient Disposition: Home Discharge orders & Medications Prescriptions: New ibuprofen 600 mg Tablet 600 mg PO Q6HR PRN (Reason: Pain, Mild (1-3)) 14 Days Qty: 60 0RF Continued albuterol sulfate 90 mcg/actuation HFA aerosol inhaler 2 puff inhalation Q6H PRN (Reason: shortness of breath or wheezing) Qty: 6.7 0RF (DME) Aerochamber MV Spacer See Rx Instructions .ROUTE .MEDSUPPLY Qty: 1 0RF Rx Instructions: As directed albuterol sulfate 90 mcg/actuation HFA aerosol inhaler 2 puff inhalation Q6H PRN (Reason: shortness of breath or wheezing) Qty: 8.5 0RF Discontinued cefpodoxime 200 mg tablet 200 mg PO BID Qty: 10 0RF Rx Instructions: must administer with a meal/food Follow up/Referrals: Lexus Miranda CNM [[facility] [employer]] - (2 week follow-up phone call 11/21/23 @ 1100 6 week follow-up office visit 12/19/23 @ 1030) Jacinto Pereira MD [Primary Care Provider] - Diet/Activity/Treatments Diet: Diet as Tolerated and Regular Activity: bed rest x 2 weeks, no heavy lifting x 4 weeks, pelvic rest x weeks Skin/Wound/Dressing Care Report to your healthcare provider any signs of infection, such as:: chills, fever, increased pain, unusual drainage and unusual redness Visit Report/Discharge Packet Instructions: DI for Depression Stand Alone Forms: Discharge: Care, Patient Portal/API, Stroke Signs & Symptoms Discharge Data Primary Care Provider: Jacinto Pereira
[2023-11-08 04:54] LABS: Add Manual Diff / Slide Review NO; Basophils Absolute Auto 0 /uL (0-100); Basophils Percent Auto 0.3 % (0-2); Eosinophils Absolute Auto 0 /uL (0-450); Hematocrit 32.1 % (36-46); Hemoglobin 10.6 g/dL (12.0-16.0); Lymphocytes Absolute Auto 800 /uL (1100-4500); Lymphocytes Percent Auto 5.8 % (25-40); Mean Corpuscular HGB Conc 33.1 % (30-36); Mean Corpuscular Hemoglobin 25.9 PG (26-34); Mean Corpuscular Volume 78.2 fL (80-100); Monocytes Absolute Auto 600 /uL (0-900); Monocytes Percent Auto 4.2 % (3-14); Neutrophils Absolute Auto 13000 /uL (1500-7000); Neutrophils Percent Auto 89.7 % (50-75); Platelet Count 361 X10^3/uL (150-400); Red Blood Cell Count 4.11 X10^6/uL (4.0-5.2); Red Cell Distribution Width 15.8 % (11.6-14.8); White Blood Cell Count 14.5 X10^3/uL (4.5-11.0)
== END 2023-11-08 07:07 | disposition home or self-care (01) | DRG 807 ==
PROVIDERS: Admitting Provider Nurse Practitioner Obstetrics & Gynecology; PCP Family Medicine; Referring Provider Nurse Practitioner Obstetrics & Gynecology; Visit Provider Nurse Practitioner Obstetrics & Gynecology
DX: O80 Encounter for full-term uncomplicated delivery (principal); Z37.0 Single live birth; Z3A.40 40 weeks gestation of pregnancy
CPT/HCPCS: 59050; 85025; G0379; J2590